=== PATIENT | male | born 1970 | race Caucasian/White ===

== ENCOUNTER 2022-04-29 17:07 | Emergency (ER) | payer MEDICAID, SELFPAY ==
[2022-04-29 17:29] VITALS: BP 175/91; PULSE 72; RESP 18; TEMP 36.8; O2SAT 97; BMI 33.1
[2022-04-29 18:34] LABS: Appearance Urine Clear (Clear); Bilirubin Urine Negative (Negative); Blood Urine Negative (Negative); Color Urine Yellow (Yellow); Glucose Urine Negative (Negative); Ketones Urine Negative (Negative); Leukocyte Esterase Urine Negative (Negative); Nitrite Urine Negative (Negative); Protein Urine Negative (Negative); Specific Gravity Urine 1.025 (1.000-1.030)
[2022-04-29 20:42] VITALS: BP 154/78; PULSE 85; RESP 18; TEMP 36.8
--- NOTE | 2022-04-29 23:46 | ED_ITS ---
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 Over the last week or so he has been having some pain over the left hip and groin which has been on and off. It got much worse tonight to the point where it is difficult for him to walk. It radiates back into his left gluteal area kind of in the SI joint region, and over the lateral hip. He has not had any swelling or redness, has not had any trauma. He does have some pain that radiates down the front of his leg as well. Has not had any back pain. No fevers or chills. He took some ibuprofen earlier and that seems to have kicked in, so he is feeling quite a bit better now than he was when he was driving to the ER. Has not had any abdominal or flank pain. No hematuria. No other urinary symptoms. No history of previous similar pain. He notes that it was not terrible at rest, but as soon as he tried to get up and walk he had pain which he would rate as severe. Related Data Allergies Allergy/AdvReac Type Severity Reaction Status Date / Time No Known Drug Allergies Allergy Verified 04/29/22 17:29 Review of Systems Status of ROS: Reports: 10 or more systems reviewed and unremarkable except as noted in History and below [facility] Social History Smoking Status: Never smoker Do you use any of these nicotine containing products: None Second hand tobacco smoke exposure: No How often do you have a drink containing alcohol: never How often do you have six or more drinks on one occasion: Never AUDIT-C Alcohol total score: 0 Non-prescribed substance use: denies use Exam Narrative: Exam Narrative: Vital signs as noted below. In general, an alert, nontoxic male. Looks comfortable. Head: Normocephalic, atraumatic. Eyes: Pupils are equal reactive. Extraocular movements are full. Conjunctivae are normal. ENT: Mucous membranes are moist. Neck: Supple without lymphadenopathy. Heart: Regular rate and rhythm. No murmur or rub. Lungs: Clear bilaterally. No increased work of breathing, crackles or wheezes. Abdomen: Soft and nontender. No organomegaly. Back: Has some tenderness over the SI joint on the left. Straight leg raise is negative. Extremities: Well perfused. No edema. No calf tenderness. Pulses intact. Significantly tender over the trochanteric bursa on the left. Neurologic: Patient is alert and oriented to person and place. Speech is fluent. Face is symmetric. Strength in lower extremities 5 5 bilaterally. Affect: Normal. Skin: Warm and dry. Well perfused. Const: Vital Signs, click to edit/add: Vital Signs - 24 hr 04/29/22 17:29 04/29/22 20:42 Temperature 98.2 F 98.2 F Pulse Rate 85 Pulse Rate [Left P ulse Oximeter] 72 Respiratory Rate 18 18 Blood Pressure 154/78 H Blood Pressure [Ri ght Upper Arm] 175/91 H Pulse Oximetry 97 Course Course Hospital Course: Some features of his history suggests possible radiculopathy, but he has significant tenderness over the trochanteric bursa which would be unusual for lumbar radiculopathy. He is feeling significantly better after ibuprofen, and is ambulatory without difficulty here. I think it is reasonable at this time to treat him with nonsteroidals and I am going to put him on a little prednisone and see how he does. Discussed with him that if his symptoms resolve, I do not think he necessarily needs follow-up. However, if he has persistence of symptoms, or certainly has any worsening, develops any weakness or numbness, would want him to be followed up. Because of his trochanteric bursal tenderness, I have asked him to follow up with Orthopedics if things do not improve, so that can be re-evaluated. If this seems to resolve and he is left with further radicular symptoms, then he can follow up with primary care after that. He is comfortable with that plan. Vital Signs Vital signs: Initial Vital Signs Temperature 98.2 F 04/29/22 17:29 Temperature Source Temporal Artery Scan 04/29/22 17:29 Pulse Rate 72 04/29/22 17:29 Respiratory Rate 18 04/29/22 17:29 Blood Pressure 175/91 H 04/29/22 17:29 Blood Pressure Mean 119 04/29/22 17:29 Blood Pressure Position Sitting 04/29/22 17:29 Pulse Oximetry 97 04/29/22 17:29 Oxygen Delivery Method 04/29/22 17:29 Vital Signs Temperature 98.2 F 04/29/22 17:29 Pulse Rate 72 04/29/22 17:29 Respiratory Rate 18 04/29/22 17:29 Blood Pressure 175/91 H 04/29/22 17:29 Pulse Oximetry 97 04/29/22 17:29 Temperature 98.2 F 04/29/22 20:42 Pulse Rate 85 04/29/22 20:42 Respiratory Rate 18 04/29/22 20:42 Blood Pressure 154/78 H 04/29/22 20:42 Pulse Oximetry 97 04/29/22 17:29 Medical Decision Making Lab Data Labs: Lab Results 04/29/22 Range/Units 18:03 Urine Color Yellow (Yellow) Urine Appearance Clear (Clear) Urine pH 7.0 (5.0-8.5) Ur Specific [place] 1.025 (1.000-1.030) Urine Protein Negative (Negative) Urine Glucose (UA) Negative (Negative) Urine Ketones Negative (Negative) Urine Blood Negative (Negative) Urine Nitrite Negative (Negative) Urine Bilirubin Negative (Negative) Urine Urobilinogen 1.0 (0.2-1.0) Ur Leukocyte Esterase Negative (Negative) Discharge Plan Discharge Clinical Impression: Trochanteric bursitis Patient Disposition: Home, Self-Care Instructions: Hip Bursitis (ED) Additional Instructions: Ibuprofen 600 mg three times a day with food for the next week. Prednisone, 3 pills a day for 3 days, then 2 pills a day for 3 days, then 1 pill a day for 3 day. If you are not improving, Ortho follow up ([phone]). Return for worsening/new symptoms Activity Level: Activity as Tolerated Stand Alone Forms: [facility] Info Instructions
== END 2022-04-29 20:43 | disposition home or self-care (01) ==
LOC: ED 20:15
PROVIDERS: Emergency Provider Emergency Medicine
DX: M70.62 Trochanteric bursitis, left hip (principal)
CPT/HCPCS: 81003; 99283; 99284